=== PATIENT | male | born 1980 | race Asian ===

== ENCOUNTER 2017-06-28 16:23 | Emergency (ER) | payer BC ==
[~2017-06-28] VITALS: Ht 170.2 cm; Wt 64.9 kg
[2017-06-28 16:42] VITALS: BP_SYST 128
--- NOTE | 2017-06-28 19:50 | NUR ---
Patient to ER bed 4 to gown for evaluation. Side rails up. Report given to Evie BUSTOS.
--- NOTE | 2017-06-28 19:57 | NUR ---
PT AMBULATED INTO ED C/O 12/24 SHARP INTERMITTENT L SIDE HEADACHE SINCE MONDAY FOR AT LEAST EVERY HOUR. PT TOOK ADVIL 200MG ON YESTERDAY MORNING AND THIS MORNING WITH NO RELIEF. PT DENIES N/V/D/F/LOC. NO DEFORMITIES NOTED ON SITE. PT IS SPEAKING IN FULL SENTENCES, BREATHING EVEN AND UNLABORED. NO OTHER INJURIES/COMPLAINTES PER PT/NOTED.
--- NOTE | 2017-06-28 20:05 | NUR ---
CARLEE MCCALLUM at bedside examining patient.
--- NOTE | 2017-06-28 20:32 | NUR ---
Patient given written and verbal discharge instructions and verbalizes understanding. ER MD MCCALLUM discussed with patient the results and treatment provided. Patient in stable condition. PT wished to keep ID band. Rx of FIORICET given. Patient educated on pain management and to follow up with PMD. Pain Scale 1. DR CARDOZA. Opportunity for questions provided and answered.
[2017-06-28 20:37] VITALS: BP_SYST 125
== END 2017-06-28 20:32 | disposition home or self-care (01) ==
LOC: SED 16:23
DX: G44.209 Tension-type headache, unspecified, not intractable (principal); Z90.89 Acquired absence of other organs
CPT/HCPCS: 99283